=== PATIENT | female | born 1940 | race Caucasian/White ===

== ENCOUNTER → 2024-02-19 | Outpatient (CLI) | payer MEDICARE, BC, SELFPAY ==
[2024-02-19 16:43] LABS: Collection Type, Urine Clean Catch
[2024-02-19 18:12] LABS: Bacteria,Urine 3+; Bilirubin,Urine Negative (Negative); Blood,Urine 1+ (Negative); Color,Urine Orange (Lt Yel-Yel); Glucose, Urine 4+ (Negative); Ketones,Urine Negative (Negative); Leukocyte Esterase,Urine Positive (Negative); Nitrite,Urine Positive (Negative); PH,Urine 5.5 (5.0-7.0); Protein,Urine 1+ (Neg - Trace); RBC,Urine 61 /hpf (0-3); Specific Gravity,Urine 1.027 (1.001-1.035); Squamous Epithelial Cell,Urine 6 /hpf (0-5); Urobilinogen,Urine Negative mg/dL (0.0-1.0); WBC,Urine 2095 /hpf (0-5)
[2024-02-19 18:24] LABS: Clarity,Urine Cloudy (Clear/Hazy); Culture Indicated,Urine Yes
== END | disposition home or self-care (01) ==
LOC: SLDO 16:35
PROVIDERS: PCP Internal Medicine; Referring Provider Internal Medicine; Visit Provider Internal Medicine
DX: E11.65 Type 2 diabetes mellitus with hyperglycemia (principal); E03.4 Atrophy of thyroid (acquired); E78.2 Mixed hyperlipidemia; N39.0 Urinary tract infection, site not specified
CPT/HCPCS: 81001; 87077; 87086; 87186

== ENCOUNTER → 2024-03-22 | Outpatient (CLI) | payer MEDICARE, SELFPAY ==
[2024-03-22 14:08] LABS: Collection Type, Urine Clean Catch
[2024-03-22 15:26] LABS: Bacteria,Urine Rare; Bilirubin,Urine Negative (Negative); Blood,Urine Trace (Negative); Budding Yeast,Urine Present; Clarity,Urine Turbid (Clear/Hazy); Color,Urine Lt-Yellow (Lt Yel-Yel); Glucose, Urine 4+ (Negative); Ketones,Urine Negative (Negative); Leukocyte Esterase,Urine Positive (Negative); Nitrite,Urine Negative (Negative); Protein,Urine Trace (Neg - Trace); RBC,Urine 40 /hpf (0-3); Specific Gravity,Urine 1.032 (1.001-1.035); Squamous Epithelial Cell,Urine 6 /hpf (0-5); Urobilinogen,Urine Negative mg/dL (0.0-1.0); WBC,Urine 161 /hpf (0-5)
[2024-03-22 15:28] LABS: Culture Indicated,Urine Yes
== END | disposition home or self-care (01) ==
PROVIDERS: PCP Internal Medicine; Referring Provider Internal Medicine; Visit Provider Internal Medicine
DX: N39.0 Urinary tract infection, site not specified (principal)
CPT/HCPCS: 81001; 87077; 87086; 87186

== ENCOUNTER → 2024-06-07 | Outpatient (CLI) | payer MEDICARE, SELFPAY ==
[2024-06-07 17:42] LABS: Basophils % (Auto) 0 % (0-2.5); Eosinophils # (Auto) 0.1 Thou/mm3 (0.0-0.5); Eosinophils % (Auto) 1 % (0-10); Hematocrit 40.5 % (36.0-46.0); Hemoglobin 13.4 g/dL (12.0-16.0); Immature Granulocytes % (Auto) 0 % (0-0); Immature Granulocytes Auto 0.02 Thou/mm3 (0.00-0.00); Lymphocytes # (Auto) 2.1 Thou/mm3 (1.0-4.8); Lymphocytes % (Auto) 32 % (10-50); Mean Corpuscular HGB Conc 33.1 g/dl (31.0-37.0); Mean Corpuscular Hemoglobin 28.2 pg (25.0-35.0); Mean Corpuscular Volume 85 fL (80-100); Monocytes # (Auto) 0.6 Thou/mm3 (0.0-0.8); Monocytes % (Auto) 9 % (0-12); Neutrophils # (Auto) 3.7 Thou/mm3 (1.8-7.7); Neutrophils % (Auto) 58 % (37-80); Nucleated Red Blood Cell % 0 /100 WBC (0); Platelet Count 228 Thou/mm3 (140-440); RDW Standard Deviation 45.8 fL (36.4-46.3); Red Blood Count 4.75 Miln/mm3 (4.00-5.20); White Blood Count 6.4 Thou/mm3 (3.6-11.0)
[2024-06-07 17:49] LABS: Anion Gap 7 (7-16); BUN/Creatinine Ratio 29 Ratio (12-20); Blood Urea Nitrogen 32 mg/dL (9-23); Calcium 8.9 mg/dL (8.3-10.6); Carbon Dioxide 27.6 mMol/L (20.0-31.0); Chloride 104 mMol/L (98-107); Creatinine (Component) 1.1 mg/dL (0.6-1.3); Glucose 285 mg/dL (74-106); Osmolality,Calculated 294 (275-295); Potassium 4.3 mMol/L (3.4-5.1); Sodium 139 mMol/L (136-145); eGFR 50 See Note
[2024-06-07 17:50] LABS: Partial Thromboplastin Time 25.4 Seconds (22.0-36.0); Prothrombin Time 11.4 Seconds (9.0-12.2)
== END | disposition home or self-care (01) ==
LOC: COPL 16:13
PROVIDERS: PCP Internal Medicine; Referring Provider Internal Medicine; Visit Provider Internal Medicine
DX: I25.10 Atherosclerotic heart disease of native coronary artery without angina pectoris (principal); I48.91 Unspecified atrial fibrillation
CPT/HCPCS: 36415; 80048; 85025; 85610; 85730

== ENCOUNTER → 2024-06-07 | Outpatient (CLI) | payer MEDICARE, SELFPAY ==
[2024-06-07 15:35] LABS: Glucose Estimated Average 151 mg/dL (80-131); Hemoglobin A1C 6.9 % Hgb (4.8-6.0)
[2024-06-07 15:39] LABS: Cardiac Risk Estimate 3.7 RATIO (3.7-5.6); Cholesterol 164 mg/dL (132-200); Free T4 (Free Thyroxine) 1.15 ng/dL (0.89-1.76); HDL Cholesterol 44 mg/dL (40-60); LDL Cholesterol,Calculated 97 mg/dL (0-130); Triglycerides 117 mg/dL (30-150)
== END | disposition home or self-care (01) ==
PROVIDERS: PCP Internal Medicine; Referring Provider Internal Medicine; Visit Provider Internal Medicine
DX: E03.4 Atrophy of thyroid (acquired) (principal); E11.65 Type 2 diabetes mellitus with hyperglycemia; E78.2 Mixed hyperlipidemia
CPT/HCPCS: 36415; 80061; 83036; 84439; 84443

== ENCOUNTER 2024-06-14 07:27 | Emergency (ER) | payer MEDICARE, SELFPAY ==
[2024-06-14 07:37] VITALS: BP 186/75; PULSE 62; PULSE 63; RESP 16; RESP 18; TEMP 35.9; O2SAT 94; O2SAT 99
[2024-06-14 07:41] VITALS: BMI 19.5
--- NOTE | 2024-06-14 07:55 | PC.NURSE ---
Pt typically takes eliquis due to arrhythmia/ blockages, but stopped taking it on the 09 of June due to being scheduled for an angiogram of the leg(s) with Thiapran tomorrow June 15
--- NOTE | 2024-06-14 08:15 | PC.NURSE ---
Pt BiBA due to a ground level fall while getting up off the toilet, live in personal care aid heard the fall but did not visually witness it. Both pt and care provider deny LOC. It is obvious that pt's face was injured during the fall as she currently has a large swollen area on the right side of her forehead, she also has a fresh small skin tare on her right elbow that is no longer bleeding at this time (about the size of a dime), some slight redness to the anterior side of the right shoulder. Pt denies pain other than her forehead, is not showing any signs of distress at this time
--- NOTE | 2024-06-14 08:20 | XR_ITS ---
Examination: CT cervical spine without contrast 2-D sagittal reconstructions 2-D coronal reconstructions 3-D reconstructions. Exam date and time:June 14, 2024 0832 hours INDICATIONS: Ground-level fall today with injury to the neck, neck pain CTDI:vol (mGy) 6.99 DLP: (mGycm) 164 Technique: Multiple 2 mm axial sections of the cervical spine have been obtained. The coronal and sagittal reconstructions have been obtained. 3-D reconstructions have been obtained. Low dose protocols were performed. One or more of the following dose reduction techniques were used; automated exposure control, adjustment of the mA and/or KV according to patient size, use of iterative reconstruction technique. Findings: Axial sections demonstrate intact base of the skull. C1 exhibit satisfactory relationship to the odontoid. No acute cervical vertebral body fracture seen. Alignment posterior spinous processes satisfactory. Impression: No acute cervical fracture.
--- NOTE | 2024-06-14 08:20 | XR_ITS ---
Examination: CT brain head without contrast. 2-D sagittal coronal reconstructions Date and time of exam:June 14, 2024 0832 hours INDICATIONS: Ground-level fall today with injury to the head, head pain CTDI: vol (mGy):46.4 DLP: (mGycm):942 Technique: Multiple CT axial sections of the brain have been obtained, 5 mm slice thickness. Contrast has not been administered. 2-D sagittal, coronal reconstructions have been obtained Low dose protocols were performed. One or more of the following dose reduction techniques were used; automated exposure control, adjustment of the mA and/or KV according to patient size, use of iterative reconstruction technique. Findings: No significant ventricular enlargement. Soft tissue forehead scalp swelling Intra-axial or extra-axial hemorrhage density is not seen. No mass effect or midline shift Basal cisterns are not remarkable. Fourth ventricle is midline. Cranial vault intact. Impression: Negative for acute hemorrhage, mass effect or midline shift
--- NOTE | 2024-06-14 08:24 | XR_ITS ---
Examination: AP chest single view Technique one AP portable upright chest single view Exam date and time: June 14, 2024 0857 hours Comparison 11/21/2022 INDICATIONS: Chest pain today. FINDINGS: Mild prominence of ventricle Moderate vascular congestion. No lobar pneumonia Subsegmental atelectasis right midlung Prominent osteopenia IMPRESSION: Moderate vascular congestion
--- NOTE | 2024-06-14 08:24 | EKG_ITS ---
[facility] Test Date: 2024-06-14 Pat Name: JULIO COTTO Department: Room: - Gender: Female [employer]: : 1940 Requested By: Selam Boudreaux Order Number: [id number] Reading MD: Selam Boudreaux Measurements Intervals [place] Rate: 55 P: 23 SC: 218 QRS: -51 QRSD: 94 T: 30 QT: 394 QTc: 380 Interpretive Statements SINUS BRADYCARDIA WITH FIRST DEGREE AV BLOCK LEFT AXIS DEVIATION [QRS AXIS < -30] NONSPECIFIC ST & T-WAVE ABNORMALITY Compared to ECG 11/21/2022 14:54:22 First degree AV block now present Left-axis deviation now present Atrial fibrillation no longer present Left anterior fascicular block no longer present T-wave abnormality still present /store/S0/[id number]/ecg/[id number].pdf
--- NOTE | 2024-06-14 08:26 | PD.EDFALL ---
ED Fall Injury RME/HPI General Chief Complaint: Fall Stated Complaint: HEAD PAIN Time Seen by Provider: 06/14/24 07:52 Arrival date/time: 06/14/24 07:27 RME / HPI RME / HPI Narrative: DR. COPELAND MAIN ED EVALUATION: 83 year old female presents to the Emergency Department [facility] with complaint of fall and head injury. Patient was getting up from the toilet, got dizzy, and fell forward; patient knows she is not supposed to go alone to the restroom but she did not want to bother anyone. She states, I just got dizzy and fell forward . No loss of consciousness. She has bruising, swelling, and a laceration to the right forehead area. Small abrasions to the nose bridge, right elbow, and right shoulder area. She has an angiogram scheduled with Dr. Goodwin, history of blockages of legs per daughter. For this procedure they took her off the Eliquis since 06/09/2024. Related Data Home Medications ?Medication ?Instructions ?Recorded ?Confirmed levothyroxine 75 mcg tablet 75 mcg PO DAILY ##0 11/07/08 06/14/24 (Synthroid) metoprolol succinate 50 mg 50 mg PO BID 12/18/19 06/14/24 tablet,extended release 24 hr glimepiride 2 mg tablet 2 mg PO QDAY 11/22/22 07/19/23 sertraline 50 mg tablet 50 mg PO HS 11/22/22 06/14/24 empagliflozin 10 mg tablet 10 mg PO HS 07/19/23 06/14/24 (Jardiance) rosuvastatin 10 mg tablet 10 mg PO DAILY 07/19/23 06/14/24 Previous Rx's ?Medication ?Instructions ?Recorded apixaban 2.5 mg tablet (Eliquis) 2.5 mg PO BID 30 days #60 tabs 11/24/22 Cod Liver Oil/Znox Cream [Desitin 1 mg top QDAY #2 tubes 07/21/23 40%] losartan 50 mg tablet 50 mg PO QDAY #30 tabs 07/21/23 Allergies Allergy/AdvReac Type Severity Reaction Status Date / Time clindamycin Allergy Intermediate RASH Verified 12/18/19 15:58 Review of Systems Review of Systems Systems Reviewed: All systems reviewed, normal except as documented Past Medical History Past Medical History NEUROLOGIC: Positive Neurological Disorders and Cerebrovascular Accident CARDIAC: Positive Cardiac Disorders, Cardiac Arrhythmia, Hypercholesterolemia and Hypertension RESPIRATORY: Positive Chronic Obstructive Pulmonary Disease (COPD) and Bronchitis MUSCULOSKELETAL: Positive Musculoskeletal Disorders and Fractures (right hip) ENT: Positive Deafness (bilateral) ENDOCRINE: Positive Endocrine Disorders, Diabetes Mellitus Type 2 and Hypothyroidism PSYCHO/SOCIAL: Positive Depression and Anxiety OTHER HISTORY: Positive Chicken Pox, Measles and Mumps Surgical History SURGICAL: Positive Joint Replacement Social History SMOKING STATUS: Never smoker SECOND HAND EXPOSURE: No SUBSTANCE USE: does not use ALCOHOL: Never ED Exam Narrative Physical exam: GENERAL APPEARANCE: alert and oriented x 4, well-developed, well-nourished, no acute distress VITALS: All vitals were reviewed and the pulse ox is 94% on room air, which is normal according to my interpretation. HEENT: See skin exam below; pupils equal, round, reactive to light; EOMI; mucous membranes pink, moist; oropharynx clear NECK: Supple LUNGS: CTABL; no wheezes, no rales, no rhonchi HEART: Regular rate, regular rhythm; normal S1, S2; no murmurs ABDOMEN: non distended; normal BS; soft, no tenderness, no guarding, no rebound; no masses, no organomegaly, no hernia BACK: no CVA tenderness EXTREMITIES: no edema NEUROLOGIC: awake; alert and oriented x4; cranial nerves II-XII grossly intact; no focal sensory or motor deficits PSYCHIATRIC: appropriate mood and affect SKIN: warm, dry, normal color; no rashes Ecchymosis and a laceration to the right forehead area. Swelling of the right forehead consistent with a hematoma. Abrasion to the nose bridge. 0.5 cm skin tear on the right elbow. Minor abrasion to the right shoulder area. Course Quality Measures none Orders Category Date Time Status Upholstery Cleaner NOW Care 06/14/24 08:24 Completed EKG (ED ONLY) *Do not use* NOW Care 06/14/24 08:[address] cervical spine wo con Stat Exams 06/14/24 08:[address] head/brain wo con Stat Exams 06/14/24 08:20 Completed EKG (ED Only) Stat Exams 06/14/24 08:24 Draft XR chest 1V portable Stat Exams 06/14/24 08:24 Completed B-Type Natriuretic Peptide Stat Lab 06/14/24 08:47 Completed CBC Stat Lab 06/14/24 08:47 Completed Comprehensive Metabolic Panel Stat Lab 06/14/24 08:47 Completed Magnesium Stat Lab 06/14/24 08:47 Completed Partial Thromboplastin Time Stat Lab 06/14/24 08:47 Completed Prothrombin Time with INR Stat Lab 06/14/24 08:47 Completed Troponin I Stat Lab 06/14/24 08:47 Completed KCL 10% Liq UDC 15 ML Med 06/14/24 11:00 Discontinued 40 meq PO X1 ONE Vital Signs Vital signs: Vital Signs Temperature 96.6 F L 06/14/24 07:37 Pulse Rate 62 06/14/24 07:37 Respiratory Rate 16 06/14/24 07:37 Blood Pressure 186/75 H 06/14/24 07:37 Pulse Oximetry (%) 94 L 06/14/24 07:37 Oxygen Delivery Method Room Air 06/14/24 07:37 Fall MDM Narrative MDM Narrative:: ISharon, am scribing for and in the presence of Dr. Copeland. Patient data External records reviewed:: EMS form Clinical information provided by:: patient and EMS Social determinants that could affect healthcare access:: none Patient has the following chronic illnesses:: hypertension and diabetes mellitus How is presenting disease/condition affected by chronic disease/condition?: uneffected by Evaluation data The following diagnostics were reviewed and interpreted by me:: lab results, radiology exam(s) and EKG tracing(s) (EKG#1: EKG at 0935 hours. Interpreted by me: sinus bradycardia, rate 55, no acute ischemic changes) Lab and/or radiology exams considered but not ordered:: none Interpretation Summary: Procedure(s): XR chest 1V portable Accession Number(s): [id number] cc: Conrad Vogel MD; Av Durham MD; Selam Copeland MD~ Examination: AP chest single view Technique one AP portable upright chest single view Exam date and time: June 14, 2024 0857 hours Comparison 11/21/2022 INDICATIONS: Chest pain today. FINDINGS: Mild prominence of ventricle Moderate vascular congestion. No lobar pneumonia Subsegmental atelectasis right midlung Prominent osteopenia IMPRESSION: Moderate vascular congestion Dictated By: Conrad Vogel MD Procedure(s): CT head/brain wo con Accession Number(s): [id number] cc: Conrad Vogel MD; Av Durham MD; Selam Copeland MD~ Examination: CT brain head without contrast. 2-D sagittal coronal reconstructions Date and time of exam:June 14, 2024 0832 hours INDICATIONS: Ground-level fall today with injury to the head, head pain CTDI: vol (mGy):46.4 DLP: (mGycm):942 Technique: Multiple CT axial sections of the brain have been obtained, 5 mm slice thickness. Contrast has not been administered. 2-D sagittal, coronal reconstructions have been obtained Low dose protocols were performed. One or more of the following dose reduction techniques were used; automated exposure control, adjustment of the mA and/or KV according to patient size, use of iterative reconstruction technique. Findings: No significant ventricular enlargement. Soft tissue forehead scalp swelling Intra-axial or extra-axial hemorrhage density is not seen. No mass effect or midline shift Basal cisterns are not remarkable. Fourth ventricle is midline. Cranial vault intact. Impression: Negative for acute hemorrhage, mass effect or midline shift Dictated By: Conrad Vogel MD Procedure(s): CT cervical spine wo con Accession Number(s): [id number] cc: Conrad Vogel MD; Av Durham MD; Selam Copeland MD~ Examination: CT cervical spine without contrast 2-D sagittal reconstructions 2-D coronal reconstructions 3-D reconstructions. Exam date and time:June 14, 2024 0832 hours INDICATIONS: Ground-level fall today with injury to the neck, neck pain CTDI:vol (mGy) 6.99 DLP: (mGycm) 164 Technique: Multiple 2 mm axial sections of the cervical spine have been obtained. The coronal and sagittal reconstructions have been obtained. 3-D reconstructions have been obtained. Low dose protocols were performed. One or more of the following dose reduction techniques were used; automated exposure control, adjustment of the mA and/or KV according to patient size, use of iterative reconstruction technique. Findings: Axial sections demonstrate intact base of the skull. C1 exhibit satisfactory relationship to the odontoid. No acute cervical vertebral body fracture seen. Alignment posterior spinous processes satisfactory. Impression: No acute cervical fracture. Dictated By: Conrad Vogel MD Medications / Prescriptions Medications or Prescriptions considered but not ordered:: none Medication administrations:: Medication Administration History Discontinued Medications Potassium Chloride (Potassium Chloride 10% 20 Meq/15 Ml Udc) 40 meq PO X1 ONE Stop: 06/14/24 11:01 Last Admin: 06/14/24 11:02 Dose: 40 meq Documented By: CS see above if any Consultations Consultation(s) initiated? (list below): No Diagnosis Fall Differential Diagnosis: concussion without loss of consciousness and other (fall, brain bleed, scalp hematoma) Most likely diagnosis given after review of the tests above:: Fall Head injury Traumatic hematoma of face Admission Indicated Admission indicated?: not indicated Admission Request Was there a request for admission?: No Disposition Plan Disposition Plan: Discharge Discharge Attestation Discharge Attestation: The patient and all family members were given an opportunity to ask questions and understood the discharge instructions. Discharge instructions specifically effects, indications for sooner follow up or return to the emergency department, and the expected course of current diagnosis. Patient condition: Stable Discharge Plan Plan Patient Disposition: HOME (Self Care) Prescriptions/Referrals Prescriptions/Med Rec: No Action levothyroxine [Synthroid] 75 MCG tablet 75 mcg PO DAILY Qty: 0 Patient Comments: TAKE ONE TABLET BY MOUTH DAILY metoprolol succinate 50 mg tablet extended release 24 hr 50 mg PO BID Patient Comments: TK 1 T PO BID glimepiride 2 mg tablet 2 mg PO QDAY Patient Comments: TAKE 1 TABLET BY MOUTH DAILY NOON sertraline 50 mg tablet 50 mg PO HS Patient Comments: TAKE 1 TABLET BY MOUTH HS Eliquis 2.5 mg tablet 2.5 mg PO BID 30 Days Qty: 60 1RF rosuvastatin 10 mg tablet 10 mg PO DAILY Patient Comments: TAKE 1 TABLET BY MOUTH DAILY Jardiance 10 mg tablet 10 mg PO HS Patient Comments: TAKE 1 TABLET BY MOUTH DAILY losartan 50 mg Tablet 50 mg PO QDAY Qty: 30 0RF Cod Liver Oil/Znox Cream [Desitin 40%] 1 mg top QDAY Qty: 2 0RF Referrals: Av Durham MD [Primary Care Provider] - In 1 week Problem List Clinical Impression: Fall, Head injury, Traumatic hematoma of face Patient/Caregiver Discharge Instructions Education Materials: ED Facial Contusion, ED Head Injury (Adult), ED Hematoma Print Language: Salvadorean Stand Alone Forms: [employer] Info., Patient Portal Info Letter
[2024-06-14 09:17] LABS: Basophils % (Auto) 0 % (0-2.5); Eosinophils # (Auto) 0.1 Thou/mm3 (0.0-0.5); Eosinophils % (Auto) 1 % (0-10); Hematocrit 36.4 % (36.0-46.0); Immature Granulocytes % (Auto) 0 % (0-0); Immature Granulocytes Auto 0.03 Thou/mm3 (0.00-0.00); Lymphocytes # (Auto) 1.3 Thou/mm3 (1.0-4.8); Lymphocytes % (Auto) 14 % (10-50); Mean Corpuscular Hemoglobin 28.3 pg (25.0-35.0); Mean Corpuscular Volume 86 fL (80-100); Monocytes # (Auto) 1.1 Thou/mm3 (0.0-0.8); Monocytes % (Auto) 12 % (0-12); Neutrophils % (Auto) 74 % (37-80); Nucleated Red Blood Cell % 0 /100 WBC (0); Platelet Count 154 Thou/mm3 (140-440); RDW Standard Deviation 44.8 fL (36.4-46.3); Red Blood Count 4.24 Miln/mm3 (4.00-5.20); White Blood Count 9.5 Thou/mm3 (3.6-11.0)
[2024-06-14 09:39] LABS: INR 1.1 (0.9-1.3); Partial Thromboplastin Time 27.1 Seconds (22.0-36.0)
[2024-06-14 09:40] LABS: B-Type Natriuretic Peptide 369 pg/mL (0-100)
[2024-06-14 09:43] LABS: Alanine Aminotransferase 19 U/L (10-49); Albumin, Serum 3.7 gm/dL (3.4-4.8); Albumin/Globulin Ratio 1.2 (1.2-2.2); Alkaline Phosphatase 81 U/L (46-116); Anion Gap 9 (7-16); Aspartate Amino Transferase 19 U/L (0-34); BUN/Creatinine Ratio 23 Ratio (12-20); Blood Urea Nitrogen 18 mg/dL (9-23); Calcium 8.6 mg/dL (8.3-10.6); Calcium (Corrected) 8.8 mg/dL (8.5-10.1); Carbon Dioxide 27.4 mMol/L (20.0-31.0); Chloride 106 mMol/L (98-107); Creatinine (Component) 0.8 mg/dL (0.6-1.3); Estimated Creatinine Clearance 41.2 mL/min (>60); Glucose 79 mg/dL (74-106); Magnesium 1.9 mg/dL (1.6-2.6); Osmolality,Calculated 284 (275-295); Sodium 142 mMol/L (136-145); Total Protein 6.7 gm/dL (5.7-8.2); Troponin I < 0.020 ng/mL (0.0-0.045); eGFR > 60 See Note
[2024-06-14 10:10] VITALS: BP 176/74; PULSE 54; RESP 22; TEMP 35.9; O2SAT 93
--- NOTE | 2024-06-14 10:43 | PC.NURSE ---
Called Federica, pt's dtr, to give update. Nothing broken, potassium a little low so we are giving her some PO potassium before she leaves. Informed dtr that pt will be sore tomorrow for her angiogram, but to inform the cardiac doctor about this fall and leave it up to them as to if they will continue through with it. Dtr will finsd a ride for the pt, if no ride available then dtr will come picker/puller but is an hour away.
[2024-06-14] MEDS: POTASSIUM CHLORIDE 10% 20 MEQ/15 ML UDC 40 MEQ PO (11:02)
== END 2024-06-14 11:44 | disposition home or self-care (01) ==
PROVIDERS: Emergency Provider Emergency Medicine; PCP Internal Medicine
DX: S00.83XA Contusion of other part of head, initial encounter (principal); W18.30XA Fall on same level, unspecified, initial encounter; S00.31XA Abrasion of nose, initial encounter; S40.211A Abrasion of right shoulder, initial encounter; S51.011A Laceration without foreign body of right elbow, initial encounter
CPT/HCPCS: 36415; 70450; 71045; 72125; 80053; 83735; 83880; 84484; 85025; 85610; 85730; 93005; 99284; A9270

== ENCOUNTER → 2024-08-05 | Outpatient (CLI) | payer MEDICARE, SELFPAY ==
[2024-08-05 09:09] LABS: Collection Type, Urine Clean Catch
[2024-08-05 10:25] LABS: Bacteria,Urine Rare; Bilirubin,Urine Negative (Negative); Blood,Urine 2+ (Negative); Budding Yeast,Urine Present; Color,Urine Yellow (Lt Yel-Yel); Glucose, Urine 4+ (Negative); Ketones,Urine Negative (Negative); Leukocyte Esterase,Urine Positive (Negative); Nitrite,Urine Negative (Negative); Protein,Urine 1+ (Neg - Trace); RBC,Urine 46 /hpf (0-3); Specific Gravity,Urine 1.029 (1.001-1.035); Squamous Epithelial Cell,Urine 1 /hpf (0-5); Urobilinogen,Urine Negative mg/dL (0.0-1.0); WBC,Urine 2369 /hpf (0-5)
[2024-08-05 10:31] LABS: Clarity,Urine Cloudy (Clear/Hazy); Culture Indicated,Urine Yes
== END | disposition home or self-care (01) ==
LOC: SLDO 08:57
PROVIDERS: PCP Internal Medicine; Referring Provider Internal Medicine; Visit Provider Internal Medicine
DX: N39.0 Urinary tract infection, site not specified (principal)
CPT/HCPCS: 81001; 87077; 87086; 87186

== ENCOUNTER → 2024-09-08 | Outpatient (CLI) | payer MEDICARE, SELFPAY ==
[2024-09-08 11:15] LABS: Collection Type, Urine Clean Catch
[2024-09-08 13:16] LABS: Bacteria,Urine Rare; Bilirubin,Urine Negative (Negative); Blood,Urine 2+ (Negative); Glucose, Urine Negative (Negative); Ketones,Urine Negative (Negative); Leukocyte Esterase,Urine Positive (Negative); Nitrite,Urine Negative (Negative); PH,Urine 7.0 (5.0-7.0); Protein,Urine Trace (Neg - Trace); RBC,Urine 42 /hpf (0-3); Specific Gravity,Urine 1.013 (1.001-1.035); Squamous Epithelial Cell,Urine 4 /hpf (0-5); Urobilinogen,Urine Negative mg/dL (0.0-1.0); WBC,Urine 2541 /hpf (0-5)
[2024-09-08 13:25] LABS: Clarity,Urine Turbid (Clear/Hazy); Color,Urine Lt-Orange (Lt Yel-Yel)
== END | disposition home or self-care (01) ==
LOC: SLDO 11:03
PROVIDERS: PCP Internal Medicine; Referring Provider Internal Medicine; Visit Provider Internal Medicine
DX: N39.0 Urinary tract infection, site not specified (principal)
CPT/HCPCS: 81001; 87077; 87086; 87186

== ENCOUNTER → 2024-09-22 | Outpatient (CLI) | payer MEDICARE, SELFPAY ==
[2024-09-22 13:05] LABS: Glucose Estimated Average 151 mg/dL (80-131); Hemoglobin A1C 6.9 % Hgb (4.8-6.0)
[2024-09-22 13:19] LABS: Alanine Aminotransferase 38 U/L (10-49); Albumin, Serum 4.0 gm/dL (3.4-4.8); Albumin/Globulin Ratio 1.3 (1.2-2.2); Alkaline Phosphatase 115 U/L (46-116); Anion Gap 11 (7-16); Aspartate Amino Transferase 44 U/L (0-34); BUN/Creatinine Ratio 34 Ratio (12-20); Bilirubin,Direct 0.1 mg/dL (0.0-0.3); Bilirubin,Total 0.3 mg/dL (0.3-1.2); Blood Urea Nitrogen 31 mg/dL (9-23); Calcium 8.8 mg/dL (8.3-10.6); Calcium (Corrected) 8.8 mg/dL (8.5-10.1); Carbon Dioxide 25.4 mMol/L (20.0-31.0); Chloride 107 mMol/L (98-107); Creatinine (Component) 0.9 mg/dL (0.6-1.3); Free T4 (Free Thyroxine) 1.06 ng/dL (0.89-1.76); Globulin 3.1 gm/dL (2.3-3.5); Glucose 160 mg/dL (74-106); Osmolality,Calculated 294 (275-295); Potassium 4.0 mMol/L (3.4-5.1); Sodium 143 mMol/L (136-145); Thyroid Stimulating Hormone 2.84 uIU/mL (0.55-4.78); Total Protein 7.1 gm/dL (5.7-8.2); eGFR > 60 See Note
== END | disposition home or self-care (01) ==
LOC: SLDO 11:43
PROVIDERS: PCP Internal Medicine; Referring Provider Internal Medicine; Visit Provider Internal Medicine
DX: E03.4 Atrophy of thyroid (acquired) (principal); E71.2 Disorder of branched-chain amino-acid metabolism, unspecified
CPT/HCPCS: 36415; 80053; 82248; 83036; 84439; 84443

== ENCOUNTER → 2025-01-20 | Outpatient (CLI) | payer MEDICARE, BC, SELFPAY ==
[2025-01-20 11:32] LABS: Collection Type, Urine Clean Catch
[2025-01-20 12:17] LABS: Basophils # (Auto) 0.0 Thou/mm3 (0.0-0.2); Basophils % (Auto) 0 % (0-2.5); Eosinophils # (Auto) 0.1 Thou/mm3 (0.0-0.5); Eosinophils % (Auto) 2 % (0-10); Hematocrit 42.0 % (36.0-46.0); Hemoglobin 14.0 g/dL (12.0-16.0); Immature Granulocytes Auto 0.03 Thou/mm3 (0.00-0.00); Lymphocytes # (Auto) 1.9 Thou/mm3 (1.0-4.8); Lymphocytes % (Auto) 26 % (10-50); Mean Corpuscular HGB Conc 33.3 g/dl (31.0-37.0); Mean Corpuscular Hemoglobin 29.9 pg (25.0-35.0); Mean Corpuscular Volume 90 fL (80-100); Monocytes # (Auto) 0.7 Thou/mm3 (0.0-0.8); Monocytes % (Auto) 10 % (0-12); Neutrophils # (Auto) 4.3 Thou/mm3 (1.8-7.7); Neutrophils % (Auto) 61 % (37-80); Nucleated Red Blood Cell # 0.00 Thou/mm3 (0.00-0.00); Nucleated Red Blood Cell % 0 /100 WBC (0); Platelet Count 215 Thou/mm3 (140-440); RDW Standard Deviation 43.8 fL (36.4-46.3); Red Blood Count 4.69 Miln/mm3 (4.00-5.20); White Blood Count 7.1 Thou/mm3 (3.6-11.0)
[2025-01-20 12:29] LABS: INR 1.0 (0.9-1.3); Partial Thromboplastin Time 27.0 Seconds (22.0-36.0); Prothrombin Time 11.1 Seconds (9.0-12.2)
[2025-01-20 12:31] LABS: Glucose Estimated Average 143 mg/dL (80-131); Hemoglobin A1C 6.6 % Hgb (4.8-6.0)
[2025-01-20 12:32] LABS: Bacteria,Urine Rare; Bilirubin,Urine Negative (Negative); Blood,Urine 1+ (Negative); Color,Urine Lt-Yellow (Lt Yel-Yel); Glucose, Urine 4+ (Negative); Ketones,Urine Negative (Negative); Leukocyte Esterase,Urine Positive (Negative); Nitrite,Urine Negative (Negative); PH,Urine 6.0 (5.0-7.0); Protein,Urine Trace (Neg - Trace); RBC,Urine 12 /hpf (0-3); Specific Gravity,Urine 1.020 (1.001-1.035); Squamous Epithelial Cell,Urine 1 /hpf (0-5); Urobilinogen,Urine Negative mg/dL (0.0-1.0); WBC,Urine 586 /hpf (0-5)
[2025-01-20 12:37] LABS: Clarity,Urine Hazy (Clear/Hazy)
[2025-01-20 12:45] LABS: Alanine Aminotransferase 24 U/L (10-49); Albumin, Serum 4.4 gm/dL (3.4-4.8); Albumin/Globulin Ratio 1.4 (1.2-2.2); Alkaline Phosphatase 89 U/L (46-116); Anion Gap 9 (7-16); Aspartate Amino Transferase 30 U/L (0-34); BUN/Creatinine Ratio 29 Ratio (12-20); Bilirubin,Total 0.5 mg/dL (0.3-1.2); Blood Urea Nitrogen 26 mg/dL (9-23); Calcium 9.1 mg/dL (8.3-10.6); Calcium (Corrected) 9.1 mg/dL (8.5-10.1); Carbon Dioxide 28.6 mMol/L (20.0-31.0); Cardiac Risk Estimate 3.1 RATIO (3.7-5.6); Chloride 107 mMol/L (98-107); Cholesterol 156 mg/dL (132-200); Creatinine (Component) 0.9 mg/dL (0.6-1.3); Free T4 (Free Thyroxine) 1.42 ng/dL (0.89-1.76); Globulin 3.1 gm/dL (2.3-3.5); Glucose 146 mg/dL (74-106); HDL Cholesterol 50 mg/dL (40-60); LDL Cholesterol,Calculated 93 mg/dL (0-130); Osmolality,Calculated 296 (275-295); Potassium 4.7 mMol/L (3.4-5.1); Sodium 145 mMol/L (136-145); Thyroid Stimulating Hormone 2.59 uIU/mL (0.55-4.78); Total Protein 7.5 gm/dL (5.7-8.2); Triglycerides 65 mg/dL (30-150); eGFR > 60 See Note
[2025-01-20 12:59] LABS: Creatinine MALB Rnd Ur 40 mg/dL (30-125); Microalbumin Creat Ratio 98 mg/gCrea (<30); Microalbumin, Random Urine 39 mg/L (0-300)
== END | disposition home or self-care (01) ==
LOC: COPL 10:48
PROVIDERS: PCP Internal Medicine; Referring Provider Internal Medicine; Visit Provider Internal Medicine
DX: I10 Essential (primary) hypertension (principal); E78.2 Mixed hyperlipidemia; E03.4 Atrophy of thyroid (acquired); E11.65 Type 2 diabetes mellitus with hyperglycemia
CPT/HCPCS: 36415; 80053; 80061; 81001; 82043; 82570; 83036; 84439; 84443; 85025; 85610; 85730